=== PATIENT | female | born 1955 | race Caucasian/White ===

== ENCOUNTER 2023-08-10 16:06 | Emergency (ER) | payer OTHER, MEDICARE ==
[~2023-08-10] VITALS: Ht 167.6 cm; Wt 81.6 kg
[2023-08-10 16:15] VITALS: BP_SYST 125; PULSE 89; RESP 20; TEMP 98.3; O2SAT 96
[2023-08-10 16:44] VITALS: BP_SYST 125; PULSE 89; RESP 20; TEMP 98.3; O2SAT 96
== END 2023-08-10 16:44 | disposition left against medical advice (07) ==
LOC: SED 16:06
DX: M79.662 Pain in left lower leg (principal); Z53.21 Procedure and treatment not carried out due to patient leaving prior to being seen by health care provider
CPT/HCPCS: 99281